=== PATIENT | female | born 1995 | race Two or more races ===

== ENCOUNTER 2019-11-12 17:18 | Emergency (ER) | payer MEDICAID ==
[~2019-11-12] VITALS: Ht 167.6 cm; Wt 87.3 kg
--- NOTE | 2019-11-12 18:08 | NUR ---
PT IN [facility]OSPITAL GOWN. PT GIVEN URINE CUP TO PROVIDE ORDERED SAMPLE. LAB AT BEDSIDE FOR LAB DRAW. WILL CONTINUE TO MONITOR.
[2019-11-12] MEDS ORDERED: ONDANSETRON ODT 4 MG ONE (18:14)
[2019-11-12 18:20] VITALS: BP 120/73
[2019-11-12 18:24] LABS: BASOPHILS # (AUTO) 0.09 x10^3/uL (0-0.1); BASOPHILS % (AUTO) 1 % (0-1); EOSINOPHILS # (AUTO) 0.23 x10^3/uL (0-0.4); EOSINOPHILS % (AUTO) 2 % (1-7); LYMPHOCYTES # (AUTO) 4.35 x10^3/uL (1-3.4); LYMPHOCYTES % (AUTO) 34 % (22-44); MD NO; MEAN CORPUSCULAR HGB CONC 33.6 g/dL (32.4-35.8); MEAN CORPUSCULAR VOLUME 89.3 fL (80-100); MEAN PLATELET VOLUME 8.9 fL (7.4-10.4); MONOCYTES # (AUTO) 0.61 x10^3/uL (0.2-0.8); MONOCYTES % (AUTO) 5 % (2-9); NEUTROPHILS % (AUTO) 59 % (42-75); PLATELET COUNT 324 x10^3/uL (130-400); RED BLOOD COUNT 4.41 x10^6/uL (3.82-5.3); RED CELL DISTRIBUTION WIDTH 14.3 % (9.6-15.2)
[2019-11-12] MEDS ORDERED: ONDANSETRON ODT 4 MG PO ONE (18:30)
[2019-11-12 18:36] LABS: ALBUMIN 3.4 g/dL (3.4-5.0); ANION GAP 5 mmol/L (5-15); CALCIUM 8.3 mg/dL (8.5-10.1); CHLORIDE 111 mmol/L (98-107); CREATININE 0.65 mg/dL (0.55-1.02)
[2019-11-12 19:51] LABS: MICROSCOPIC AUTO
== END 2019-11-12 20:24 | disposition home or self-care (01) ==
LOC: ED 17:57
DX: N93.8 Other specified abnormal uterine and vaginal bleeding (principal); N83.291 Other ovarian cyst, right side; Z90.89 Acquired absence of other organs
CPT/HCPCS: 36415; 76830; 80048; 81001; 82040; 84703; 85025; 87086; 99284; Q0162